=== PATIENT | male | born 1965 | race Caucasian/White ===

== ENCOUNTER → 2023-07-18 | Outpatient (CLI) | payer OTHER, SELFPAY ==
[2023-07-18 16:42] LABS: Absolute Lymphocyte Count 1.69 X10^3/uL (0.83-4.51); Absolute Neutrophil Count 3.9 X10^3/uL (2.0-7.7); Basophil# 0.06 X10^3/uL; Eosinophil# 0.11 X10^3/uL; Eosinophils% 1.8 % (0-5); Hematocrit 44.5 % (40-54); Hemoglobin 14.7 g/dL (13.0-16.5); Lymphocyte # 1.69 X10^3/ul (0.83-4.51); Lymphocyte % 26.9 % (19-41); Mean Corpuscular Hgb 28.3 pg (27.0-32.0); Mean Corpuscular Volume 85.6 fL (80-94); Monocyte# 0.46 X10^3/uL; Monocyte% 7.3 % (0-10); NRBC Flagged by Analyzer 0 % (0-5); Neutrophil # 3.93 X10^3/uL (2.7-7.7); Neutrophil % 62.5 % (47-70); Platelet Count 280 K/mm3 (150-450); RBC Distribution Width CV 11.9 % (11.6-14.6); RBC Distribution Width SD 37.2 fl (35.1-43.9); Reticulocyte Count 1.37 % (0.5-1.5); White Blood Count 6.3 K/mm3 (4.4-11.0)
[2023-07-18 16:59] LABS: Erythrocyte Sedimentation Rate 3 mm/hr (0-20)
[2023-07-18 17:10] LABS: Vitamin B12 543 pg/mL (211-911)
[2023-07-18 17:19] LABS: ALB/GLOB Ratio 1.2 RATIO (0.9-2.4); AST(SGOT) 24 U/L (15-37); Alanine Aminotransfer ALT/SGPT 28 U/L (16-61); Alkaline Phosphatase 70 U/L (45-117); Amylase 78 U/L (25-115); Anion Gap 5 (5-15); BUN 19 mg/dL (7-18); CRP < 2.90 mg/L (0.0-3.0); Calcium,Total 9.2 mg/dL (8.5-10.1); Chloride 104 mmol/L (98-107); EST Glomerular Filtration Rate 81 mL/min (>60); Est Glom Filt Rate - Afr Amer 98 mL/min (>60); Ferritin 391 ng/mL (26-388); Globulin 3.4 g/dL (2.2-4.2); Glucose 94 mg/dL (74-106); Iron 74 ug/dL (65-175); Iron Binding Capacity,Total 335 ug/dL (250-450); LDH 174 U/L (87-241); Lipase 24 U/L (13-75); Potassium 4.1 mmol/L (3.5-5.1); Protein, Total 7.4 g/dL (6.4-8.2); Sodium Level 138 mmol/L (136-145)
[2023-07-26 17:07] LABS: Albumin 3.9 g/dL (2.9-4.4); Alpha-1-Globulins 0.2 g/dL (0.0-0.4); Alpha-2-Globulins 0.8 g/dL (0.4-1.0); Copper, Serum or Plasma 95 ug/dL (69-132); Cytoplasmic Ab (C-ANCA) <1:20 titer (Neg:<1:20); Endomysial Antibody IgA Negative (Negative); Gamma Globulin 1.1 g/dL (0.4-1.8); Haptoglobin 57 mg/dL (29-370); Immunoglobulin A 118 mg/dL (90-386); Immunoglobulin E 14 IU/mL (6-495); Immunoglobulin G 1078 mg/dL (603-1613); Immunoglobulin M 103 mg/dL (20-172); Perinuclear Ab (P-ANCA) <1:20 titer (Neg:<1:20); t-Transglutaminase IgA <2 U/mL (0-3)
== END | disposition home or self-care (01) ==
LOC: LAB 15:23
PROVIDERS: PCP Family Medicine; Referring Provider Internal Medicine Gastroenterology; Visit Provider Internal Medicine Gastroenterology
DX: D50.9 Iron deficiency anemia, unspecified (principal)
CPT/HCPCS: 36415; 80053; 82150; 82525; 82607; 82728; 82784; 82785; 83010; 83516; 83540; 83550; 83615; 83690; 84165; 84443; 85025; 85045; 85652; 86140; 86255; 86256; 86334

== ENCOUNTER → 2023-07-28 | Outpatient (CLI) | payer OTHER, SELFPAY ==
[2023-08-02 20:08] LABS: Calprotectin, Stool 40 ug/g (0-120); Fats, Neutral Normal (.); Fats, Total Normal (.)
[2023-08-04 00:07] LABS: Pancreatic Elastase, Fecal 70 (>200)
== END | disposition home or self-care (01) ==
PROVIDERS: PCP Family Medicine; Visit Provider Internal Medicine Gastroenterology
DX: K58.9 Irritable bowel syndrome, unspecified (principal); D50.9 Iron deficiency anemia, unspecified
CPT/HCPCS: 82274; 82653; 82705; 83630; 83993; 87177; 87209; 87329; 87493; 87506

== ENCOUNTER 2023-11-15 12:21 | Day surgery (SDC) | payer OTHER, SELFPAY ==
--- NOTE | 2023-11-15 | IMM_PTH ---
PATHOLOGY RESULTS PATIENT: MICA TORRES LOC: EN U#:[id number] AGE/SX: 58/M ROOM: RE11/15/[address]: Dr. Yves Silva DO : 1965 BED: DIS: 11/15/2023 SPEC #: [id number] RECD: 11/18/23 12:33 STATUS: POLA RETon #: [id number] [place]: 11/15/23 00:[address]: Yves Silva DEPT: IMMUNOHISTOCHEMISTRY RECD BY: Cherise Robert ENTERED: 11/18/23 12:34 SP TYPE: IMMUNO OTHR DR: Dr. Neel Lara MD Tissues: Esophageal mucous membrane Procedures: P53 (initial) KI-67 (add) PHYSICIAN & INSTITUTION [place] [id number] SPECIMEN INFORMATION: Tissue Source: B - Distal esophagus Clinical Info: Iron deficiency anemia, diarrhea Specimen Number: [id number] CPT code: 56221, 69762 METHODOLOGY: Deparaffinized sections of prefer/formalin-fixed tissue or PAP/DQ stained slides are incubated with monoclonal/polyclonal antibodies/oligonucleotide probes. Localization is made via biotin free immunoperoxidase method. Appropriate controls are performed and reacted as expected. Results on target cell population are indicated in the following table: RESULTS: ANTIBODY / CLONE RESULT Block B P53 (DO-7) negative (null pattern) Ki-67 (30-9) positive, low These tests were developed and their performance characteristics determined by [facility]. They may not have been cleared or approved by the U.S. Food and Drug Administration. The FDA has determined that such clearance or approval is not necessary. The above immunohistochemical/dualISH markers are ordered and reviewed by the Pathologist. INTERPRETATION: B. Distal esophagus, biopsy: Negative for dysplasia. SARA:carleen 11/18/2023
[2023-11-15 12:48] VITALS: BP 123/75; PULSE 45; RESP 16; TEMP 36.3; O2SAT 99; BMI 28.3
[2023-11-15] MEDS: Lactated Ringers 1,000 ML 15 ML IV (12:51)
--- NOTE | 2023-11-15 12:52 | HP.PCM_ITS ---
History and Physical Date of Admission: 11/15/23 58 M who presents to the office today for initial consult. PCP OV noting history of low iron. Colonoscopy 2017 without finding; fecal occult x3 WNL. Maintained on iron supplement with orange juice. Iron level 63, hgb WNL?. Pt also reports long history of loose stools. Has urgent diarrhea after meals. Has not had this worked up. ROS Const Constitutional: Positive for fatigue ENT ENT: No difficulty swallowing Gastro GI: Positive for diarrhea; No abdominal pain, belching, bloating, change in bowel habits, change in stool character, coffee ground emesis, constipation, cramping, heartburn, difficulty swallowing, feeling full early, excessive flatus, incontinent of stools, Vomiting blood/hematemesis, Blood in stool, loose stools, Black,tarry stools, nausea/dyspepsia, pain with swallowing, vomiting or other Musc Musculoskeletal: No joint pain Skin Skin: No yellowing of the eye or itchy eyes Psych Psychiatric: No anxiety and No depression Endo Endocrine: Positive for fatigue Aller/Imm Allergy/Immunologic: No itchy eyes [place]/Lymp Hematologic/Lymphatic: No easy bleeding or easy bruising Exam Const General: cooperative and comfortable Nutritional Appearance: average body habitus and well nourished HENIL Head: normal to inspection Ears: hearing grossly normal bilaterally Nose: external nose normal Face and sinus: normal facial exam Mouth: oral mucosae normal Throat: posterior oropharynx normal Eyes General: appearance normal, both eyes and all related structures Neck Neck: normal visual inspection Chest Chest palpation & inspection: normal inspection of the chest and normal palpation of entire chest wall Resp Effort & Inspection: normal respiratory effort Auscultation: Bilateral: Clear to Auscultation Cardio Palpation: normal PMI Rate: regular rate Rhythm: regular rhythm GI Inspection: normal to inspection Auscultation: normal bowel sounds Percussion: normal to percussion Palpation: no hepatosplenomegaly Skin General: no rashes or lesions noted Neuro General: patient alert Extrem General: normal to inspection Psych Affect: normal affect Assessment and Plan Assessment and Plan (1) Iron deficiency anemia: Status: Acute Qualifiers: Iron deficiency anemia type: other iron deficiency Qualified Code(s): D50.8 - Other iron deficiency anemias Plan: The differential diagnosis for iron deficiency anemia does include gastric antral vascular ectasia, angiodysplasia, celiac disease, malabsorptive disorder such as pancreatic exocrine insufficiency in the setting of diarrhea. Also in the setting of diarrhea and if diagnosis does include ulcers of the small bowel secondary to inflammatory bowel disease or autoimmune associated vasculitis. He will undergo a capsule endoscopy because he had a normal colonoscopy. He will a lso undergo biochemical testing for celiac disease and other autoimmune disorders that may affect iron absorption. (2) Diarrhea: Status: Acute Qualifiers: Diarrhea type: functional diarrhea Qualified Code(s): K59.1 - Functional diarrhea Plan: The differential diagnosis for his diarrhea does include osmotic versus secretory diarrhea. It does seem if he has more of a osmotic diarrhea that we will going to the category of small bacterial overgrowth, exocrine pancreatic insufficiency, celiac disease and less likely inflammatory bowel disease. However we will check him for Crohn disease with IBD SGI from [facility]. Orders: Orders Ferritin Today D50.9 - Iron deficiency anemia, unspecified CBC W/Diff, Automated Today D50.9 - Iron deficiency anemia, unspecified Haptoglobin Today D50.9 - Iron deficiency anemia, unspecified LDH Today D50.9 - Iron deficiency anemia, unspecified Iron Binding Capacity,Total Today D50.9 - Iron deficiency anemia, unspecified TAMARA + Protein Elect, Serum Today D50.9 - Iron deficiency anemia, unspecified Retic Panel Count Today D50.9 - Iron deficiency anemia, unspecified Iron Today D50.9 - Iron deficiency anemia, unspecified ANCA Today D50.9 - Iron deficiency anemia, unspecified Celiac Disease Profile Today D50.9 - Iron deficiency anemia, unspecified CRP Today D50.9 - Iron deficiency anemia, unspecified Immunoglobulin A Today D50.9 - Iron deficiency anemia, unspecified Immunoglobulin E Today D50.9 - Iron deficiency anemia, unspecified Immunoglobulin G Today D50.9 - Iron deficiency anemia, unspecified Immunoglobulin M Today D50.9 - Iron deficiency anemia, unspecified Erythrocyte Sed Rate Today D50.9 - Iron deficiency anemia, unspecified Comprehensive Metabolic Profil Today D50.9 - Iron deficiency anemia, unspecified Copper, Serum or Plasma Today D50.9 - Iron deficiency anemia, unspecified Lipase Today D50.9 - Iron deficiency anemia, unspecified Amylase Today D50.9 - Iron deficiency anemia, unspecified Pancreatic Elastase, Fecal Today D50.9 - Iron deficiency anemia, unspecified Fecal Fat, Qualitative Today D50.9 - Iron deficiency anemia, unspecified Stool Occult Blood iFOB Today D50.9 - Iron deficiency anemia, unspecified Calprotectin, Stool Today D50.9 - Iron deficiency anemia, unspecified OVA+PARA w/Giardia EIA [id number] Today D50.9 - Iron deficiency anemia, unspecified ENTERIC PATHOGEN PANEL STOOL Today D50.9 - Iron deficiency anemia, unspecified, K58.9 - Irritable bowel syndrome without diarrhea Stool Lactoferrin/WBC Today D50.9 - Iron deficiency anemia, unspecified, K58.9 - Irritable bowel syndrome without diarrhea CDIFF (PCR) Today D50.9 - Iron deficiency anemia, unspecified Thyroid Stim Hormone (TSH) Today D50.9 - Iron deficiency anemia, unspecified Vitamin B12 Today D50.9 - Iron deficiency anemia, unspecified I have examined the patient and the H&P has been reviewed. There are no clinical changes since date of exam.
--- NOTE | 2023-11-15 13:15 | EGD_PTH ---
PATHOLOGY RESULTS PATIENT: MICA TORRES LOC: EN U#:[id number] AGE/SX: 58/M ROOM: RE11/15/[address]: Dr. Yves Silva DO : 1965 BED: DIS: 11/15/2023 SPEC #: [id number] RECD: 11/16/23 10:02 STATUS: POLA [place] #: [id number] [place]: 11/15/23 13:[address]: Yves Silva DEPT: SURGICAL PATHOLOGY RECD BY: Yu Fernandes ENTERED: 11/16/23 10:02 SP TYPE: EGD BIOPSY STEFAN DR: Dr. Neel Lara MD Tissues: Duodenum, NOS Esophagus, NOS Procedures: Special Stain Group II Surgery Specimen Level IV Alcian Blue/PAS (control) HEADER OPERATION: EGD, biopsy, electrohemostasis PRE-OP DIAGNOSIS: Iron deficiency anemia, diarrhea TISSUE SUBMITTED: A - Duodenum biopsy, B - Distal esophagus biopsy MICROSCOPIC DIAGNOSIS A. Duodenum, biopsy: Fragments of duodenal mucosa with mild congestion. B. Distal esophagus, biopsy: Fragments of gastroesophageal mucosa with a few cells with intestinal metaplasia (goblet cell metaplasia), consistent with Carroll's esophagus. Chronic inflammation and minimal acute inflammation Negative for dysplasia. See comment. SJ:rg 11/17/2023 COMMENT B. Alcian blue/PAS stain with matched control is used in the evaluation of the specimen. Immunohistochemistry ([id number]) for P53 and Ki-67 will be performed and results will be reported separately. Case has been reviewed in consultation with Dr. Goodman who concurs with the above diagnosis. IDC:AM MICROSCOPIC DESCRIPTION Slides are reviewed. GROSS DESCRIPTION A - Received in fixative is one container labeled with the patient's name and designated duodenum biopsy. The specimen consists of two irregular fragments of light cedeño soft tissue that in aggregate measure 0.6 x 0.3 x 0.1 cm. The specimen is totally submitted in one cassette. B - Received in fixative is one container labeled with the patient's name and designated distal esophagus biopsy. The specimen consists of multiple irregular fragments of light cedeño soft tissue that in aggregate measure 0.8 x 0.6 x 0.1 cm. The specimen is totally submitted in one cassette. / SARA:carleen 11/16/2023 TC:3 CPT: 09046 x2, 50743
[2023-11-15 13:50] VITALS: BP 102/74; BP 123/75; PULSE 61; RESP 16; TEMP 36.6; O2SAT 95
--- NOTE | 2023-11-15 13:53 | OP.EGD_ITS ---
Patient Name: Elijah Garcia Procedure Date: 11/15/2023 1:21 PM Date of : 1965 Age: 58 Procedure: Upper GI endoscopy Indications: Iron deficiency anemia Providers: Yves Silva DO Medicines: Monitored Anesthesia Care Patient Profile: This is a 58 year old male. Refer to note in patient chart for documentation of history and physical. Patient has symptoms of chronic dyspepsia and chronic heartburn. Complications: No immediate complications. Procedure: Pre-Anesthesia Assessment: - Prior to the procedure, a History and Physical was performed, and patient medications and allergies were reviewed. The patient is competent. The risks and benefits of the procedure and the sedation options and risks were discussed with the patient. All questions were answered and informed consent was obtained. Patient identification and proposed procedure were verified by the physician in the pre-procedure area. Mental Status Examination: alert and oriented. Airway Examination: normal oropharyngeal airway and neck mobility. Respiratory Examination: clear to auscultation. CV Examination: normal. Prophylactic Antibiotics: The patient does not require prophylactic antibiotics. Prior Anticoagulants: The patient has taken no anticoagulant or antiplatelet agents. ASA Grade Assessment: II - A patient with mild systemic disease. After reviewing the risks and benefits, the patient was deemed in satisfactory condition to undergo the procedure. The anesthesia plan was to use monitored anesthesia care (MAC). Immediately prior to administration of medications, the patient was re-assessed for adequacy to receive sedatives. The heart rate, respiratory rate, oxygen saturations, blood pressure, adequacy of pulmonary ventilation, and response to care were monitored throughout the procedure. The physical status of the patient was re-assessed after the procedure. After obtaining informed consent, the endoscope was passed under direct vision. Throughout the procedure, the patient's blood pressure, pulse, and oxygen saturations were monitored continuously. The Endoscope was introduced through the mouth, and advanced to the second part of duodenum. The upper GI endoscopy was accomplished without difficulty. The patient tolerated the procedure well. Scope In: 1:39:16 PM Scope Out: 1:45:09 PM Total Procedure Duration Time 0 hours 5 minutes 53 seconds Findings: There were esophageal mucosal changes suggestive of long-segment Carroll's esophagus present in the lower third of the esophagus. The maximum longitudinal extent of these mucosal changes was 4 cm in length. Mucosa was biopsied with a cold forceps for histology in a targeted manner at intervals of 1 cm in the lower third of the esophagus. One specimen bottle was sent to pathology. Verification of patient identification for the specimen was done. Estimated blood loss was minimal. A single 5 mm angiodysplastic lesion with bleeding was found on the greater curvature of the stomach. Coagulation for hemostasis using heater probe was successful. Estimated blood loss was minimal. Two 5 mm angiodysplastic lesions with bleeding were found in the duodenal bulb. Coagulation for hemostasis using heater probe was successful. Patchy mild inflammation characterized by erythema was found in the first portion of the duodenum. Biopsies were taken with a cold forceps for histology. Verification of patient identification for the specimen was done. Estimated blood loss was minimal. Impression: - Esophageal mucosal changes suggestive of long-segment Carroll's esophagus. Biopsied. - A single bleeding angiodysplastic lesion in the stomach. Treated with a heater probe. - Two bleeding angiodysplastic lesions in the duodenum. Treated with a heater probe. - Mucosal changes suspicious for duodenitis. Biopsied. Recommendation: - Discharge patient to home. - Resume previous diet. - Continue present medications. - Await pathology results. - Repeat upper endoscopy in 1 year for surveillance. Procedure Code(s): --- Professional --- 25840, 59, Esophagogastroduodenoscopy, flexible, transoral; with control of bleeding, any method 04286, 51, Esophagogastroduodenoscopy, flexible, transoral; with biopsy, single or multiple CPT copyright 2021 [employer]. All rights reserved. The codes documented in this report are preliminary and upon public opinion survey taker review may be revised to meet current compliance requirements. Yves Silva DO 11/15/2023 1:52:46 PM This report has been signed electronically. Number of Addenda: 0 Note Initiated On: 11/15/2023 1:21 PM
--- NOTE | 2023-11-15 13:53 | OP.CCLET_ITS ---
11/15/2023 Neel Lara Md Re : Upper GI endoscopy procedure for Elijah Garcia Donnell Lara This procedure was performed on Wednesday, November 15, 2023. My impressions and recommendations are as follows: Impressions : - Esophageal mucosal changes suggestive of long-segment Carroll's esophagus. Biopsied. - A single bleeding angiodysplastic lesion in the stomach. Treated with a heater probe. - Two bleeding angiodysplastic lesions in the duodenum. Treated with a heater probe. - Mucosal changes suspicious for duodenitis. Biopsied. Recommendations : - Discharge patient to home. - Resume previous diet. - Continue present medications. - Await pathology results. - Repeat upper endoscopy in 1 year for surveillance. My findings are described in the full procedure note, which is enclosed. If I can be of further assistance, please feel free to contact me at . Sincerely, Yves Silva, 11/15/2023 1:52:46 PM This report has been signed electronically.
[2023-11-15 13:55] VITALS: BP 104/70; BP 123/75; PULSE 52; RESP 16; O2SAT 96
[2023-11-15 14:00] VITALS: BP 113/73; BP 123/75; PULSE 50; RESP 16; O2SAT 96
[2023-11-15 14:05] VITALS: BP 106/68; BP 123/75; PULSE 51; RESP 16; TEMP 36.4; O2SAT 96
[2023-11-15 14:31] VITALS: BP 123/75
--- OUTSIDE RECORDS SUMMARY | 2023-11-15 16:45 | XMS RPT_ITS | CCD ---
Author Name Unknown Address [id number] [place] [address] Organization [facility] Care Team Providers Care Desk Editor Name Role Phone DEREK, MELO T Unavailable Unavailable DEREK, MELO T Unavailable Unavailable DEREK, MELO T Unavailable Unavailable DEREK, MELO T Unavailable Unavailable DEREK, MELO T Unavailable Unavailable DEREK, MELO T Unavailable Unavailable KRISTIN FAITH, DR HYDE Attending Unavailable KRISTIN FAITH, DR HYDE Attending Unavailable BECKY SPEARS CNP Primary Care Unavailable BECKY SPEARS CNP Attending Unavailable Samira FOSTER Consulting Unavailable BECKY SPEARS CNP Admitting Unavailable PROVIDER, UNKNOWN Consulting Unavailable PROVIDER, UNKNOWN Consulting Unavailable PROVIDER, UNKNOWN Consulting Unavailable BECKY SPEARS CNP Primary Care Unavailable BECKY SPEARS CNP Attending Unavailable Samira FOSTER Consulting Unavailable BECKY SPEARS CNP Admitting Unavailable PROVIDER, UNKNOWN Consulting Unavailable PROVIDER, UNKNOWN Consulting Unavailable PROVIDER, UNKNOWN Consulting Unavailable TERRANCE KNOWLES Admitting Unavailable Samira FOSTER Consulting Unavailable TERRANCE KNOWLES Primary Care Unavailable TERRANCE KNOWLES Attending Unavailable PROVIDER, UNKNOWN Consulting Unavailable PROVIDER, UNKNOWN Consulting Unavailable PROVIDER, UNKNOWN Consulting Unavailable Samira FOSTER MD Unavailable [phone] Friend, Yves Unavailable Unavailable BERLIN Unavailable Unavailable BARRETT MEDLEY MD Unavailable MELO REED Unavailable Mayra Coleman RN Unavailable Unavailable BRAD PULIDO RN Unavailable Unavailable PIERO ROJO Unavailable Unavailable Julia Ferro Unavailable Unavailable HEMA MCKINNON Unavailable Unavailable Donta MCKINNON MD Unavailable NEVAEH KELLY Unavailable Unavailable Aniyah Quiros Unavailable Unavailable Bren Guzmán Unavailable Unavailable ROSALIE GUZMÁN MD Unavailable Jakub LAMBERT, Keira Unavailable Unavaila LILI Rueda Unavailable Unavailable Lisa LAMBERT, Shirley Unavailable Unavailable Unavailable Unavailable Medications Current Medications Medication Drug Class(es) Dates Sig (Normalized) Sig (Original) Daily Multiple Vitamin (2 sources) ergocalciferol 1.25 mg oral capsule (2 sources) Provitamin D2 Compound ferrous sulfate 325 mg oral tablet (2 sources) Start: 06-01-2022 methIMAzole 5 mg oral tablet (4 sources) Thyroid Hormone Synthesis Inhibitor End: 12-27-2011 Completed/Discontinued Medications Medication Drug Class(es) Dates Sig (Normalized) Sig (Original) acetaminophen 300 mg / codeine phosphate 30 mg oral tablet (2 sources) Opioid Agonist Start: 09-10-2010 End: 03-12-2011 cephalexin 500 mg oral capsule (2 sources) Cephalosporin Antibacterial Start: 03-12-2011 End: 12-27-2011 dextromethorphan hydrobromide 2 mg/ml / guaiFENesin 20 mg/ml oral suspension (2 sources) Uncompetitive X-jlxsph-I-aspartat e Receptor Antagonist, Sigma-1 Agonist Start: 08-30-2016 End: 09-04-2016 ibuprofen 600 mg oral tablet (4 sources) Nonsteroidal Anti-inflammatory Drug Start: 10-25-2020 End: 11-24-2020 Problems Problem Classification Problem Date Documented Date Episodic/Chronic Administrative/social admission (2 sources) Finding related to ability to drive a car; Translations: [Encounter for examination for driving license] 10-14-2012 Episodic Allergic reactions (4 sources) Eczema; Translations: [Dermatitis, unspecified] 10-25-2020 Episodic Disorders of lipid metabolism (16 sources) Hyperlipidemia; Translations: [Hyperlipidemia, unspecified] 04-02-2017 Chronic Hyperplasia of prostate (2 sources) Hyperplasia of prostate, unspecified, without urinary obstruction and other lower urinary symptoms (LUTS) 10-14-2012 Chronic Immunizations and screening for infectious disease (12 sources) Needs influenza immunization; Translations: [Encounter for immunization] 08-12-2022 Episodic Influenza (2 sources) Influenza with other respiratory manifestations 10-20-2012 Episodic Joint disorders and dislocations; trauma-related (2 sources) 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 Malaise and fatigue (8 sources) Lack of energy; Translations: [Other fatigue] 12-21-2021 Episodic Nutritional deficiencies (20 sources) Vitamin D deficiency; Translations: [Vitamin D deficiency, unspecified] 12-21-2021 Chronic Nutritional deficiencies (20 sources) Iron deficiency; Translations: [Serum iron low] Onset: 11-02-2022 Episodic Open wounds of extremities (2 sources) Multiple and unspecified open wound of upper limb, without mention of complication 12-14-2010 Episodic Other aftercare (2 sources) Encounter for removal of sutures 12-21-2010 Episodic Other connective tissue disease (2 sources) Trochanteric bursitis; Translations: [Trochanteric bursitis, left hip] 09-22-2021 Episodic Other connective tissue disease (2 sources) Tendinitis of knee; Translations: [Other specified enthesopathies of unspecified lower limb, excluding foot] 12-27-2011 Episodic Other endocrine disorders (5 sources) Testicular hypofunction; Translations: [Testicular hypofunction] Onset: 06-14-2023 Chronic Other endocrine disorders (10 sources) Hypotestosteronism; Translations: [Endocrine disorder, unspecified] 02-11-2014 Episodic Other infections; including parasitic (4 sources) Personal history of other infectious and parasitic diseases Onset: 07-10-2020 06-01-2022 Episodic Other male genital disorders (6 sources) Disorder of prostate; Translations: [Disorder of prostate, unspecified] 12-15-2013 Episodic Other non-traumatic joint disorders (2 sources) Joint pain; Translations: [Pain in unspecified joint] 10-25-2020 Episodic Other non-traumatic joint disorders (6 sources) Hip pain; Translations: [Pain in left hip] 12-01-2018 Episodic Other non-traumatic joint disorders (4 sources) Pain in left knee; Translations: [Pain in joint, lower leg] 07-02-2014 Episodic Other nutritional; endocrine; and metabolic disorders (2 sources) Weight loss; Translations: [Abnormal weight loss] 05-30-2017 Episodic Other skin disorders (4 sources) Skin tag; Translations: [Other hypertrophic disorders of the skin] 10-25-2020 Episodic Other skin disorders (2 sources) Skin nodule; Translations: [Localized swelling, mass and lump, unspecified] 06-28-2016 Episodic Other skin disorders (4 sources) Abnormal granulation tissue; Translations: [Other hypertrophic disorders of the skin] 05-28-2015 Episodic Other upper respiratory infections (2 sources) Acute upper respiratory infection; Translations: [Acute upper respiratory infection, unspecified] 08-30-2016 Episodic Residual codes; unclassified (2 sources) Patient encounter status; Translations: [Encounter for prophylactic measures, unspecified] 10-25-2020 Episodic Residual codes; unclassified (2 sources) Decreased libido 07-28-2015 Episodic Skin and subcutaneous tissue infections (2 sources) Cellulitis and abscess of lower limb; Translations: [Cutaneous abscess of limb, unspecified] 03-12-2011 Episodic Superficial injury; contusion (14 sources) Contusion of hip; Translations: [Contusion of left hip, subsequent encounter] 01-10-2019 Episodic Syncope (6 sources) Near syncope; Translations: [Syncope and collapse] 11-22-2018 Episodic Thyroid disorders (20 sources) Thyrotoxicosis with toxic multinodular goiter without thyrotoxic crisis or storm; Translations: [Toxic multinodular goiter] Onset: 05-25-2022 Chronic Unclassified (11 sources) Encounter for screening for malignant neoplasm of colon; Translations: [Patient encounter status] Onset: 06-27-2017 06-01-2017 Episodic Results Test Name Value Interpretation Reference Range Facil ity Vital Signs Date Time Vital Sign Value Performing Clinician Gregg clifton 06-01-2022 15:34-0400 Body height 167.64 cm [facility]. 06-01-2022 15:34-0400 Body mass index (BMI) [Ratio] 26.79 kg/m2 Keira Call RN [facility] [employer] [facility].; [facility], [facility]. 06-01-2022 15:34-0400 Body surface area Derived from formula 1.85 m2 Keira Call RN [facility] [employer] [facility] [employer].; [facility], [facility]. 06-01-2022 15:34-0400 Body weight 75.3 kg Keira Call [facility].; [facility], [facility]. 06-01-2022 15:34-0400 Diastolic blood pressure 70 mm[Hg] Ke[facility].; [facility]. 06-01-2022 15:34-0400 Heart rate 68 /min Keira [facility].; [facility]. 06-01-2022 15:34-0400 Systolic blood pressure 128 mm[Hg] Keira Call RN [facility].; [facility], [facility]. 09-22-2021 13:54-0500 Body height 167.64 cm Samira FOSTER MD Work Phone: [facility].; [facility]. 09-22-2021 13:54-0500 Body mass index (BMI) [Ratio] 26.47 kg/m2 Samira FOSTER MD Work Phone: [facility].; [facility]. 09-22-2021 13:54-0500 Body surface area Derived from formula 1.84 m2 Samira FOSTER MD Work Phone: [facility].; [facility]. 09-22-2021 13:54-0500 Body weight 74.39 kg Samira FOSTER MD Work Phone: [facility].; [facility]. 09-22-2021 13:54-0500 Diastolic blood pressure 62 mm[Hg] Samira FOSTER MD Work Phone: [facility].; [facility]. 09-22-2021 13:54-0500 Heart rate 56 /min Samira FOSTER MD Work Phone: [facility].; [facility]. 09-22-2021 13:54-0500 Systolic blood pressure 101 mm[Hg] Samira FOSTER MD Work Phone: [facility]Ar[facility].; [facility] [employer] [facility]. 10-25-2020 09:14-0500 Body height 167.64 cm Samira FOSTER MD Work Phone: [facility] [employer] [facility] [employer].; [facility] [employer] [facility], [employer]. 10-25-2020 09:14-0500 Body mass index (BMI) [Ratio] 26.47 kg/m2 Samira FOSTER MD Work Phone: [facility] [employer] [facility].; [facility] [employer] [facility]. 10-25-2020 09:14-0500 Body surface area Derived from formula 1.84 m2 Samira FOSTER MD Work Phone: [facility] [employer] [facility] [employer].; [facility] [employer] [facility] Ill[facility]. 10-25-2020 09:14-0500 Body weight 74.39 kg Samira FOSTER MD Work Phone: [facility].; [facility] [employer] [facility] IlliKlax Media Inc. 10-25-2020 09:14-0500 Diastolic blood pressure 69 mm[Hg] Samira FOSTER MD Work Phone: [facility] IllAr[facility] [employer].; [facility] [employer] [facility], Inc. 10-25-2020 09:14-0500 Heart rate 51 /min Samira FOSTER MD Work Phone: [facility] IllAr[facility] [employer].; [facility] [employer] [facility] IlliKlax Media Inc. 10-25-2020 09:14-0500 Systolic blood pressure 115 mm[Hg] Samira FOSTER MD Work Phone: [facility].; [facility] [employer] [facility] IllAr[employer]. 01-10-2019 13:20-0400 Body height 167.64 cm PIERO ALIA [facility]Ar[facility].; [facility] [employer] [facility] IllAr[facility]. 01-10-2019 13:20-0400 Body mass index (BMI) [Ratio] 27.6 kg/m2 [facility] [employer] [facility], Inc.; [facility] [employer] [facility], Inc. 01-10-2019 13:20-0400 Body surface area Derived from formula 1.87 m2 [facility] [employer] [facility], Inc.; [facility] [employer] [facility], Inc. 01-10-2019 13:20-0400 Body weight 77.[address] [facility] [employer] [facility], Inc.; [facility] [employer] [facility], Inc. 01-10-2019 13:20-0400 Diastolic blood pressure 71 mm[Hg] [facility] [employer] [facility], Inc.; [facility] [employer] [facility], Inc. 01-10-2019 13:20-0400 Heart rate 71 /min [facility] [employer] [facility], Inc.; [facility]kaufDAUNC [facility] [employer]Ch[employer], Inc. 01-10-2019 13:20-0400 Systolic blood pressure 105 mm[Hg] [facility] [employer] [facility], Inc.; [facility] [employer]Ch[employer], Inc. 12-22-2018 12:58-0400 Body height 167.64 cm Keira Call RN [facility] [employer] [facility], Inc.; [facility] [employer] [facility], Inc. 12-22-2018 12:58-0400 Body mass index (BMI) [Ratio] 28.25 kg/m2 Keira Call RN [facility] [employer] [facility], Inc.; [facility] [employer] [facility], Inc. 12-22-2018 12:58-0400 Body surface area Derived from formula 1.89 m2 Keira Call RN [facility] [employer] [facility], Inc.; [employer] [facility] [employer]Ch[employer], Inc. 12-22-2018 12:58-0400 Body weight 79.38 kg Keira Call RN [facility] [employer] [facility], Inc.; [facility] [employer], Inc. 12-22-2018 12:58-0400 Diastolic blood pressure 82 mm[Hg] Keira Call RN [facility] [employer] [facility], Inc.; [facility] [employer], Inc. 12-22-2018 12:58-0400 Heart rate 65 /min Keira Call RN [facility] [employer] [facility], Inc.; [facility] [employer] [facility], Inc. 12-22-2018 12:58-0400 Systolic blood pressure 126 mm[Hg] Keira Call RN [facility] [employer] [facility], Inc.; [facility] [employer] [facility], Inc. 12-08-2018 13:49-0500 Body height 167.64 cm Keira Call RN [facility] [employer] [facility], Inc.; [facility] [employer] [facility], Inc. 12-08-2018 13:49-0500 Body mass index (BMI) [Ratio] 28.89 kg/m2 Keira Call RN [facility], Inc.; [facility] [employer] [facility], Inc. 12-08-2018 13:49-0500 Body surface area Derived from formula 1.91 m2 Keira Call RN [facility], Inc.; [facility] [employer] [facility], Inc. 12-08-2018 13:49-0500 Body weight 81.19 kg Keira Call RN [facility] [employer] [facility], Inc.; [facility] [employer] [facility], Inc. 12-08-2018 13:49-0500 Diastolic blood pressure 72 mm[Hg] Keira Call RN [facility], Inc.; [facility] [employer] [facility], Inc. 12-08-2018 13:49-0500 Heart rate 56 /min Keira Call RN [facility] [employer] [facility], Inc.; [facility] [employer] [facility], Inc. 12-08-2018 13:49-0500 Systolic blood pressure 145 mm[Hg] Keira Call RN [facility] [employer] [facility], Inc.; [facility] [employer] [facility], Inc. 12-01-2018 10:30-0500 Body height 167.64 cm Mayra Coleman RN [facility] [employer] [facility], Inc.; [facility] [employer] [facility], Inc. 12-01-2018 10:30-0500 Body mass index (BMI) [Ratio] 28.31 kg/m2 Mayra Coleman RN [facility] [employer] [facility], Inc.; [facility] [employer] [facility], Inc. 12-01-2018 10:30-0500 Body surface area Derived from formula 1.89 m2 Mayra Coleman RN [facility], Inc.; [facility] [employer] [facility], Inc. 12-01-2018 10:30-0500 Body temperature 97.7 [degF] Mayra Coleman RN [facility], Inc.; [facility] [employer] [facility], Inc. 12-01-2018 10:30-0500 Body weight 79.56 kg Mayra Coleman RN [facility], Inc.; [facility] [employer] [facility], Inc. 12-01-2018 10:30-0500 Diastolic blood pressure 74 mm[Hg] Mayra Coleman RN [facility] [employer] [facility], Inc.; [facility] [employer] [facility], Inc. 12-01-2018 10:30-0500 Heart rate 55 /min Mayra Coleman RN [facility], Inc.; [facility] [employer] [facility], Inc. 12-01-2018 10:30-0500 Systolic blood pressure 128 mm[Hg] Mayra Colmean RN [facility] [employer] [facility], Inc.; [facility] [employer] [facility], Inc. 11-22-2018 13:08-0500 Diastolic blood pressure 64 mm[Hg] [facility] [employer] [facility], Inc.; [facility] [employer] [facility], Inc. 11-22-2018 13:08-0500 Heart rate 64 /min [facility] [employer] [facility], Inc.; [facility] [employer] [facility], Inc. 11-22-2018 13:08-0500 Systolic blood pressure 96 mm[Hg] [facility] [employer] [facility], Inc.; [facility] [employer], Inc. 05-28-2017 14:18-0400 Body weight 73.3 kg Samira FOSTER MD Work Phone: [facility] [employer] [facility] IllAr[employer]Mind [employer].; [employer] [facility] [employer], Inc. 05-02-2017 16:08-0400 Body height 165.1 cm LILI MEDINA [facility] [employer] [facility], Inc.; [facility] [employer] [facility], Inc. 05-02-2017 16:08-0400 Body mass index (BMI) [Ratio] 27.92 kg/m2 [facility], Inc.; [facility], Inc. 05-02-2017 [id number] Body surface area Derived from formula 1.84 m2 [facility], Inc.; [facility], Inc. 05-02-2017 [id number] Body weight 76.11 kg [facility], Inc.; [facility], Inc. 05-02-2017 16:08-0400 Diastolic blood pressure 72 mm[Hg] [facility], Inc.; [facility], Inc. 05-02-2017 [id number] Heart rate 56 /min [facility], Inc.; [facility] [employer] [facility], Inc. 05-02-2017 16:08-0400 Systolic blood pressure 108 mm[Hg] [facility], Inc.; [facility] [employer] [facility], Inc. 04-16-2017 10:05-0400 Body height 165.1 cm [facility], Inc.; [facility], Inc. 04-16-2017 10:05-0400 Body mass index (BMI) [Ratio] 28.12 kg/m2 [facility], Inc.; [facility], Inc. 04-16-2017 10:05-0400 Body surface area Derived from formula 1.84 m2 [facility], Inc.; [facility] [employer] [facility], Inc. 04-16-2017 10:05-0400 Body weight 76.66 kg [facility], Inc.; [facility] [employer] [facility], Inc. 04-16-2017 10:05-0400 Diastolic blood pressure 68 mm[Hg] [facility] [employer] [facility], Inc.; [facility] [employer] [facility], Inc. 04-16-2017 10:05-0400 Heart rate 65 /min [facility], Inc.; [facility], Inc. 04-16-2017 10:05-0400 Systolic blood pressure 105 mm[Hg] [facility], Inc.; [facility] [employer] [facility], Inc. 04-02-2017 10:35-0400 Body height 165.1 cm [facility], Inc.; [facility], Inc. 04-02-2017 10:35-0400 Body mass index (BMI) [Ratio] 28.46 kg/m2 [facility], Inc.; [facility], Inc. 04-02-2017 10:35-0400 Body surface area Derived from formula 1.85 m2 [facility], Inc.; [facility], Inc. 04-02-2017 10:35-0400 Body weight 77.57 kg [facility], Inc.; [facility] [employer] [facility], Inc. 04-02-2017 10:35-0400 Diastolic blood pressure 79 mm[Hg] [facility], Inc.; [facility] [employer] [facility], Inc. 04-02-2017 10:35-0400 Heart rate 73 /min [facility], Inc.; [facility], Inc. 04-02-2017 10:35-0400 Systolic blood pressure 123 mm[Hg] [facility] [employer] [facility], Inc.; [facility] [employer] [facility], Inc. 08-30-2016 14:38-0500 Body height 165.1 cm Samira FOSTER MD Work Phone: [facility] [employer] [facility], Inc.; [facility] [employer] [facility], Inc. 08-30-2016 14:38-0500 Body mass index (BMI) [Ratio] 29.29 kg/m2 Samira FOSTER MD Work Phone: [employer] [facility] [employer] [facility] [employer]. 08-30-2016 14:38-0500 Body surface area Derived from formula 1.87 m2 Samira FOSTER MD Work Phone: [employer] [facility] [employer] IllAr[employer] [employer].; [employer] [facility] [employer] [facility] [employer]. 08-30-2016 14:38-0500 Body temperature 98 [degF] Samira FOSTER MD Work Phone: [employer] [facility] IllAr[facility] [employer].; [employer] [facility] [employer] [facility] [employer]. 08-30-2016 14:38-0500 Body weight 79.83 kg Samira FOSTER MD Work Phone: [employer] [facility] [employer] [facility] [employer]. 08-30-2016 14:38-0500 Diastolic blood pressure 72 mm[Hg] Samira FOSTER MD Work Phone: [employer]; Autonomic NetworksGRAND [facility]IEW HEALTH [employer] [facility] [employer]. 08-30-2016 14:38-0500 Heart rate 65 /min Samira FOSTER MD Work Phone: [employer]; Autonomic NetworksGR[facility] HEALTH [employer] [facility] [employer]. 08-30-2016 14:38-0500 Inhaled oxygen concentration 21 % Samira FOSTER MD Work Phone: [employer].; Autonomic NetworksGR[facility] HEALTH [employer] [facility] [employer]. 08-30-2016 14:38-0500 SaO2% (BldA) [Mass fraction] 95 % Samira FOSTER MD Work Phone: [employer]; Aut[employer] NetworksGR[facility] HEALTH [employer] [facility] [employer]. 08-30-2016 14:38-0500 Systolic blood pressure 119 mm[Hg] Samira FOSTER MD Work Phone: [employer].; Autonomic NetworksGR[facility] HEALTH [employer] [facility] [employer]. 06-28-2016 15:33-0400 Body height 165.1 cm Samira FOSTER MD Work Phone: [facility] [employer] [facility]ArcherMind Technology.; [facility] [employer] [facility] IllArcherMind Technology. 06-28-2016 15:33-0400 Body mass index (BMI) [Ratio] 28.29 kg/m2 Samira FOSTER MD Work Phone: [facility] [employer] [facility] IllArcherMind Technology.; [facility] [employer] [facility] IllArcherMind Technology. 06-28-2016 15:33-0400 Body surface area Derived from formula 1.85 m2 Samira FOSTER MD Work Phone: [facility] [employer] [facility] IllArcherMind Technology.; [facility] [employer] [facility] IllArcherMind Technology. 06-28-2016 15:33-0400 Body weight 77.11 kg Samira FOSTER MD Work Phone: [facility] [employer] [facility] IllArcherMind Technology.; [facility] [employer] [facility] IllArcherMind Technology. 05-28-2015 15:34-0400 Body height 167.64 cm [facility] [employer] [facility] IllArcherMind Technology.; [facility] [employer] [facility] IllArcherMind Technology. 05-28-2015 15:34-0400 Body mass index (BMI) [Ratio] 27.6 kg/m2 [facility] [employer] [facility] IllArcherMind Technology.; [facility] [employer] [facility] IllArcherMind Technology. 05-28-2015 15:34-0400 Body surface area Derived from formula 1.87 m2 [facility] [employer] [facility] IllArcherMind Technology.; [facility] [employer] [facility] IlliKlax Media [facility]. 05-28-2015 15:34-0400 Body weight 77.57 kg LILI [facility] [employer] [facility] IllArcherMind Technology.; [facility] [employer] [facility] IllArcherMind Technology. 05-28-2015 15:34-0400 Diastolic blood pressure 69 mm[Hg] LILI [facility] IllArcherMind Technology.; [facility] [employer] [facility] IllArcherMind Technology. 05-28-2015 15:34-0400 Heart rate 68 /min LILI [facility]ale[facility] Bro[facility] IllArcherMind Technology.; [facility] [employer] [facility] IllArcherMind Technology. 05-28-2015 15:34-0400 Systolic blood pressure 112 mm[Hg] LILI MEDINA [facility], Inc.; [facility], [facility]. 06-03-2014 15:47-0400 Body height 163.83 cm Keira Call RN [facility], [employer].; [facility], Inc[facility] 06-03-2014 15:47-0400 Body mass index (BMI) [Ratio] 28.56 kg/m2 Keira Call RN [facility], [facility].; [facility], Inc[facility] 06-03-2014 15:47-0400 Body surface area Derived from formula 1.83 m2 Keira Call RN [facility], [facility].; [facility], [facility]. 06-03-2014 15:47-0400 Body weight 76.66 kg Keira Call RN [facility], [employer].; [facility], [facility]. 06-03-2014 15:47-0400 Diastolic blood pressure 74 mm[Hg] Keira Call RN [facility] CenteriKlax Media Inc.; [facility], [facility]. 06-03-2014 15:47-0400 Heart rate 69 /min Keira Call RN [facility], [employer].; [facility], [facility]. 06-03-2014 15:47-0400 Systolic blood pressure 120 mm[Hg] Keira Call RN [facility] [employer] [facility], Inc.; [facility], [facility]. 10-20-2012 15:56-0500 Body height 163.83 cm [facility], [facility].; [facility], Inc[facility] 10-20-2012 15:56-0500 Body mass index (BMI) [Ratio] 28.22 kg/m2 [facility].; [facility], [facility]. 10-20-2012 15:56-0500 Body surface area Derived from formula 1.82 m2 [facility], [employer].; [facility] [employer] [facility], Inc. 10-20-2012 15:56-0500 Body temperature 98.6 [degF] [facility] [employer] [facility], Inc.; [facility], Inc[facility] 10-20-2012 15:56-0500 Body weight 75.75 kg Julia [facility], Inc.; [facility], Inc[facility] 10-20-2012 15:56-0500 Diastolic blood pressure 60 mm[Hg] Julia [facility], Inc.; [facility], Inc[facility] 10-20-2012 15:56-0500 Heart rate 90 /min Julia [facility], Inc.; [facility], Inc[facility] 10-20-2012 15:56-0500 Systolic blood pressure 96 mm[Hg] Julia [facility], Inc.; [facility], Inc[facility] 10-14-2012 09:10-0500 Body height 163.83 cm Mayra Coleman RN [facility] [employer] [facility], Inc.; [facility] [employer] [facility], Inc. 10-14-2012 09:10-0500 Body mass index (BMI) [Ratio] 28.73 kg/m2 Mayra Coleman RN [facility], Inc.; [facility] [employer] [facility], Inc. 10-14-2012 09:10-0500 Body surface area Derived from formula 1.84 m2 Mayra Coleman RN [facility], Inc.; [facility], Inc[facility] 10-14-2012 09:10-0500 Body temperature 97.9 [degF] Mayra Coleman RN [facility], Inc.; [facility] [employer] [facility], Inc. 10-14-2012 09:10-0500 Body weight 77.11 kg Mayra Coleman RN [facility] [employer] [facility], Inc.; [facility] [employer] [facility], Inc. 10-14-2012 09:10-0500 Diastolic blood pressure 60 mm[Hg] Mayra Coleman RN [facility] [employer] [facility], Inc.; [facility] [employer] [facility], Inc. 10-14-2012 09:10-0500 Heart rate 52 /min Mayra Coleman RN [facility] [employer] [facility], Inc.; [facility] [employer] [facility], Inc. 10-14-2012 09:10-0500 Systolic blood pressure 99 mm[Hg] Mayra Coleman RN [facility], Inc.; [facility] [employer] [facility], [facility]. 12-27-2011 16:36-0400 Diastolic blood pressure 73 mm[Hg] Keira Call RN [facility] [employer] [facility], Inc.; [facility] [employer] [facility], Inc. 12-27-2011 16:36-0400 Heart rate 64 /min Keira Call RN [facility] [employer] [facility], Inc.; [facility] [employer] [facility], Inc. 12-27-2011 16:36-0400 Systolic blood pressure 113 mm[Hg] Keira Call RN [facility] [employer] [facility], Inc.; [facility] [employer] [facility], Inc. 03-12-2011 16:43-0400 Body height 163.83 cm Mayra Coleman RN [facility] [employer] [facility], [facility].; [facility] [employer] [facility], Inc. 03-12-2011 16:43-0400 Body mass index (BMI) [Ratio] 27.21 kg/m2 Mayra Coleman RN [facility] [employer] [facility], Inc.; [facility] [employer] [facility], [facility]. 03-12-2011 16:43-0400 Body surface area Derived from formula 1.79 m2 Mayra Coleman RN [facility] [employer] [facility], [facility].; [facility] [employer] [facility], [facility]. 03-12-2011 16:43-0400 Body temperature 97.9 [degF] Mayra Coleman RN [facility] [employer] [facility], [facility].; [facility] [employer] [facility], Inc. 03-12-2011 16:43-0400 Body weight 73.03 kg Mayra Coleman RN [facility] [employer] [facility], [facility].; [facility] [employer] [facility], Inc. 03-12-2011 16:43-0400 Diastolic blood pressure 58 mm[Hg] Mayra Coleman RN [facility] [employer] [facility], Inc.; [facility] [employer] [facility], Inc. 03-12-2011 16:43-0400 Heart rate 60 /min Mayra Coleman RN [facility] [employer] [facility], [facility].; [facility] [employer] [facility], Inc. 03-12-2011 16:43-0400 Systolic blood pressure 95 mm[Hg] Mayra Coleman RN [facility] [employer] [facility], Inc.; [facility] [employer] [facility], Inc. 11-28-2010 10:02-0500 Body height 167.64 cm Julia [facility] [employer] [facility], [facility].; [facility] [employer] [facility], Inc. 11-28-2010 10:02-0500 Body mass index (BMI) [Ratio] 26.31 kg/m2 Julia [facility], [facility].; [facility] [employer] [facility], Inc. 11-28-2010 10:02-0500 Body surface area Derived from formula 1.83 m2 [facility], [facility].; [facility] [employer] [facility], Inc. 11-28-2010 10:02-0500 Body weight 73.94 kg Julia [facility] [employer] [facility], [facility].; [facility] [employer] [facility], [facility]. 11-28-2010 10:02-0500 Diastolic blood pressure 65 mm[Hg] Julia [facility] [employer] [facility], [facility].; [facility] [employer] [facility], Inc. 11-28-2010 10:02-0500 Heart rate 67 /min Julia [facility] [employer] [facility], [facility].; [facility] [employer] [facility], Inc. 11-28-2010 10:02-0500 Systolic blood pressure 113 mm[Hg] Julia [facility] [employer] [facility], Inc.; [facility] [employer] [facility], Inc. 09-10-2010 16:05-0500 Body temperature 98.3 [degF] LILI [facility] [employer] [facility], Inc.; [facility] [employer] [facility], Inc. 09-10-2010 16:05-0500 Body weight 75.3 kg LILI [facility] [employer] [facility], [employer].; [facility] [employer] [facility], Inc. 09-10-2010 16:05-0500 Diastolic blood pressure 71 mm[Hg] LILI [facility] [employer] [facility], Inc.; [facility] [employer] [facility], Inc. 09-10-2010 16:05-0500 Heart rate 59 /min [facility] [employer] [facility], Inc.; [facility] Patel [employer] [facility], Inc. 09-10-2010 16:05-0500 Systolic blood pressure 109 mm[Hg] LILI [facility] [employer] [facility], Inc.; [facility] [employer] [facility], Inc. Encounters Encounter Date Encounter Type Care Provider Facility Start: 11-15-2023 End: 11-15-2023 Samira FOSTER MD Work Phone: [facility] [employer]. Start: 09-30-2023 End: 09-30-2023 ambulatory TERRANCE KNOWLES [facility] Start: 06-30-2023 End: 06-30-2023 Samira FOSTER MD Work Phone: [facility] [employer] [facility] IllArcherMind Technology. Start: 06-14-2023 End: 06-14-2023 ambulatory BECKY GABRIEL [facility] Start: 06-10-2023 End: 06-10-2023 ambulatory BECKY GABRIEL [facility] Start: 02-16-2023 End: 02-16-2023 Samira FOSTER MD Work Phone: [facility] [employer] [facility] IllArcherMind Technology. Start: 02-15-2023 End: 02-15-2023 Samira FOSTER MD Work Phone: [facility] [employer] [facility] IllArcherMind Technology. Start: 12-21-2022 End: 12-21-2022 Samira FOSTER MD Work Phone: [facility] [employer]. Start: 12-20-2022 End: 12-20-2022 Samira FOSTER MD Work Phone: [facility] [employer]. Start: 11-02-2022 End: 11-07-[address] BARRETT FOSTER MD Facility:A Start: 11-02-2022 End: 11-02-2022 Samira FOSTER MD Work Phone: [facility] Center[facility]ink[facility]. Start: 10-29-2022 End: 10-29-2022 Samira FOSTER MD Work Phone: [facility]aufDA[facility] [place] [employer] [facility] IllArcherMind Technology. Start: 10-27-2022 End: 10-27-2022 Samira [facility]OSTER MD Work [facility] Start: 10-15-2022 End: 10-15-2022 Sam[facility]OSTER MD [facility] Start: 09-27-2022 End: 09-27-2022 Samira FOSTER MD Work Phone: [facility], [employer] Start: 08-12-2022 End: 08-12-2022 Samira FOSTER MD Work Phone: [facility] Start: 06-15-2022 End: 06-15-2022 Samira FOSTER MD Work Phone: [facility] Start: 06-01-2022 End: 06-01-2022 Samira FOSTER MD Work Phone: [facility] Start: 05-25-2022 End: 05-30-2022 [facility] DR BARRETT FOSTER MD Facility:A Start: 05-25-2022 End: 05-25-2022 Samira FOSTER MD Work Phone: [facility] Start: 05-18-2022 End: 05-18-2022 Samira FOSTER MD Work Phone: [facility] Start: 12-21-2021 End: 12-21-2021 Samira FOSTER MD Work Phone: [facility] Start: 12-09-2021 End: 12-09-2021 Samira FOSTER MD Work Phone: [facility] Start: 12-08-2021 End: 12-08-2021 Samira FOSTER MD Work Phone: [facility]. Start: 09-22-2021 End: 09-22-2021 Office outpatient visit 15 minutes Samira FOSTER MD Work Phone: [facility], [employer] Start: 08-13-2021 End: 08-13-2021 Samira FOSTER MD Work Phone: [facility]. Start: 08-11-2021 End: 08-11-2021 Samira FOSTER MD Work Phone: [facility]. Start: 08-05-2021 End: 08-05-2021 Samira FOSTER MD Work Phone: [facility], [employer]. Start: 04-09-2021 End: 04-09-2021 Samira FOSTER MD Work Phone: [facility]. Start: 12-16-2020 End: 12-16-2020 Samira FOSTER MD Work Phone: [facility]. Start: 10-25-2020 End: 10-25-2020 Samira FOSTER MD Work Phone: [facility]. Start: 10-25-2020 End: 10-25-2020 Samira FOSTER MD Work Phone: [facility]. Start: 10-25-2020 End: 10-25-2020 Office outpatient visit 15 minutes Samira FOSTER MD Work Phone: [facility]. Start: 10-14-2020 End: 10-14-2020 Samira FOSTER MD Work Phone: [facility]. Start: 09-05-2020 End: 09-05-2020 Samira FOSTER MD Work Phone: [employer]. Start: 08-01-2020 End: 08-01-2020 Samira FOSTER MD Work Phone: [employer]in [facility] SmartPill. Start: 07-28-2020 End: 07-28-2020 Samira FOSTER MD Work Phone: [facility] vidCoin [facility] SmartPill. Start: 05-23-2020 End: 05-23-2020 Samira FOSTER MD Work Phone: SCRM [facility] SmartPill. Start: 03-14-2020 End: 03-14-2020 Samira FOSTER MD Work Phone: [employer] [facility] Smart[employer]ill. Start: 02-22-2020 End: 02-22-2020 Samira FOSTER MD Work Phone: [employer]. Start: 01-14-2020 End: 01-14-2020 Samira FOSTER MD Work Phone: [employer]. Start: 01-10-2019 End: 01-10-2019 Office outpatient visit 15 minutes Samira FOSTER MD Work Phone: [employer]. Start: 12-22-2018 End: 12-22-2018 Office outpatient visit 15 minutes Samira FOSTER MD Work Phone: S[employer] [facility] SmartPill. Start: 12-08-2018 End: 12-08-2018 Office outpatient visit 15 minutes Samira FOSTER MD Work Phone: [employer] [facility] Smart[employer]ill. Start: 12-01-2018 End: 12-01-2018 Office outpatient visit 15 minutes Samira FOSTER MD Work Phone: [employer]. Start: 12-01-2018 End: 12-01-2018 Samira FOSTER MD Work Phone: [employer] Start: 11-22-2018 End: 11-22-2018 Samira FOSTER MD Work Phone: [facility] [employer]. Start: 11-22-2018 End: 11-22-2018 Samira FOSTER MD Work Phone: [facility] [employer]oc[employer] [facility] IlliKlax Media Inc. Start: 11-22-2018 End: 11-22-2018 Office outpatient visit 15 minutes Samira FOSTER MD Work Phone: [facility] [employer] [facility] IlliKlax Media Inc. Start: 02-16-2018 End: 02-16-2018 Samira FOSTER MD Work Phone: [facility] [employer] [facility] IllArcherMind Technology. Start: 07-22-2017 End: 07-22-2017 [facility] Start: 06-27-2017 End: 06-27-2017 [facility] Start: 06-01-2017 End: 06-01-2017 Samira FOSTER MD Work Phone: [facility] [employer] [facility] IlliKlax Media Inc. Start: 05-30-2017 End: 05-30-2017 Samira FOSTER MD Work Phone: [facility] [employer] [facility] IlliKlax Media Inc. Start: 05-05-2017 End: 05-05-2017 Samira FOSTER MD Work Phone: [facility] [employer]. Start: 05-04-2017 End: 05-04-2017 Samira FOSTER MD Work Phone: [facility] Patel [employer]. Start: 05-02-2017 End: 05-02-2017 Office outpatient visit 15 minutes Samira FOSTER MD Work Phone: [facility] [employer]. Start: 04-16-2017 End: 04-16-2017 Office outpatient visit 15 minutes Samira FOSTER MD Work Phone: [facility]ST[facility] [employer]. Start: 04-02-2017 End: 04-02-2017 Office outpatient visit 15 minutes Samira FOSTER MD Work Phone: [employer]. Start: 02-24-2017 End: 02-24-2017 Samira FOSTER MD Work Phone: [employer] [facility] SmartPill. Start: 08-30-2016 End: 08-30-2016 Office outpatient visit 15 minutes Samira FOSTER MD Work Phone: [facility] SmartPill. Start: 08-18-2016 End: 08-18-2016 Samira FOSTER MD Work Phone: [employer] [facility] SmartPill. Start: 08-16-2016 End: 08-16-2016 Samira FOSTER MD Work Phone: SCR[employer] [facility] SmartPill. Start: 06-28-2016 End: 06-28-2016 Office outpatient visit 15 minutes Samira FOSTER MD Work Phone: [facility]GR[facility] [employer]. Start: 01-05-2016 End: 01-05-2016 Samira FOSTER MD Work Phone: [employer]. Start: 11-28-2015 End: 11-28-2015 Samira FOSTER MD Work Phone: [employer]. Start: 09-30-2015 End: 09-30-2015 Samira FOSTER MD Work Phone: [employer]. Start: 07-28-2015 End: 07-28-2015 Samira FOSTER MD Work Phone: [employer]. Start: 07-21-2015 End: 07-21-2015 Samira FOSTER MD Work Phone: [facility] SmartPill. Start: 07-09-2015 End: 07-09-2015 Samira FOSTER MD Work Phone: [facility] Smart[employer]ill. Start: 05-28-2015 End: 05-28-2015 Office outpatient visit 25 minutes Samira FOSTER MD Work Phone: [facility] [employer]. Start: 12-04-2014 End: 12-04-2014 Samira FOSTER MD Work Phone: [facility]. Start: 09-28-2014 End: 09-28-2014 Samira FOSTER MD Work Phone: [facility] [employer]. Start: 09-17-2014 End: 09-17-2014 Samira FOSTER MD Work Phone: [facility] [employer]. Start: 07-03-2014 End: 07-03-2014 Samira FOSTER MD Work Phone: [facility] SmartPill. Start: 07-02-2014 End: 07-02-2014 Samira FOSTER MD Work Phone: [facility]. Start: 06-03-2014 End: 06-03-2014 Samira FOSTER MD Work Phone: [facility] SmartPill. Start: 04-13-2014 End: 04-13-2014 Samira FOSTER MD Work Phone: [facility] [employer]ill. Start: 04-11-2014 End: 04-11-2014 Samira FOSTER MD Work Phone: [facility] SmartPill. Start: 02-16-2014 End: 02-19-2014 Samira FOSTER MD Work Phone: [facility] SmartPill. Start: 02-13-2014 End: 02-13-2014 Patient encounter status Samira FOSTER MD Work Phone: [facility] [employer].; [place] [employer] [facility] [employer] [facility] IllArcherMind Technology. Start: 02-13-2014 End: 02-13-2014 Samira FOSTER MD Work Phone: [facility]. Start: 02-11-2014 End: 02-11-2014 Samira FOSTER MD Work Phone: [facility]. Start: 02-08-2014 End: 02-08-2014 Samira FOSTER MD Work Phone: [facility] [employer] [facility] IllArcherMind Technology. Start: 12-15-2013 End: 12-15-2013 Samira FOSTER MD Work Phone: [facility] [employer] [facility] IllArcherMind Technology. Start: 12-03-2013 End: 12-03-2013 Samira FOSTER MD Work Phone: [facility] [employer] [facility] IllArcherMind Technology. Start: 11-16-2013 End: 11-16-2013 Samira FOSTER MD Work Phone: [facility] [employer] [facility] IllArcherMind Technology. Start: 11-15-2013 End: 11-15-2013 Samira FOSTER MD Work Phone: [facility] [employer]. Start: 09-29-2013 End: 09-29-2013 Samira FOSTER MD Work Phone: [facility] [employer] [facility] IllArcherMind Technology. Start: 08-15-2013 End: 08-15-2013 Samira FOSTER MD Work Phone: [facility] [employer] [facility] IllArcherMind Technology. Start: 08-11-2013 End: 08-11-2013 Samira FOSTER MD Work Phone: [facility] [employer] [facility] IllArcherMind Technology. Start: 07-26-2013 End: 07-26-2013 Samira FOSTER MD Work Phone: [facility] [employer] [facility] IllArcherMind Technology. Start: 07-21-2013 End: 07-21-2013 Samira FOSTER MD Work Phone: [facility] [employer]. Start: 07-20-2013 End: 07-20-2013 Samira FOSTER MD Work Phone: [facility] [employer]. Start: 10-20-2012 End: 10-20-2012 Samira FOSTER MD Work Phone: [facility] [employer]. Start: 10-14-2012 End: 10-14-2012 Routine general medical examination at a health care facility Samira FOSTER MD Work Phone: [facility] [employer]. Start: 10-14-2012 End: 10-14-2012 Samira FOSTER MD Work Phone: [facility] [employer]. Start: 08-19-2012 End: 08-19-2012 Samira FOSTER MD Work Phone: [facility] [employer]. Start: 08-03-2012 End: 08-03-2012 Samira FOSTER MD Work Phone: [facility] [employer]. Start: 06-03-2012 End: 06-03-2012 Samira FOSTER MD Work Phone: [facility] [employer]. Start: 06-02-2012 End: 06-02-2012 Samira FOSTER MD Work Phone: [facility] [employer]. Start: 04-29-2012 End: 04-29-2012 Samira FOSTER MD Work Phone: [facility] [employer]. Start: 04-21-2012 End: 04-21-2012 Samira FOSTER MD Work Phone: [facility] [employer]. Start: 03-25-2012 End: 03-25-2012 Samira FOSTER MD Work Phone: [facility] [employer]. Start: 03-23-2012 End: 03-23-2012 Samira FOSTER MD Work Phone: [place] [employer] [facility] [employer]. Start: 02-26-2012 End: 02-26-2012 Samira FOSTER MD Work Phone: [place] [employer] [facility] [employer]. Start: 02-24-2012 End: 02-24-2012 Samira FOSTER MD Work Phone: [place] [employer] [facility] [employer]. Start: 01-01-2012 End: 01-01-2012 Samira FOSTER MD Work Phone: [place] [employer] [facility] [employer]. Start: 12-27-2011 End: 12-27-2011 Samira FOSTER MD Work Phone: [place] [employer] [facility] Start: 10-30-2011 End: 10-30-2011 Samira FOSTER MD Work Phone: [place] [employer] [facility] [employer]. Start: 08-13-2011 End: 08-13-2011 Samira FOSTER MD Work Phone: [place] [employer] [facility] [employer]. Start: 08-11-2011 End: 08-11-2011 Samira FOSTER MD Work Phone: [place] [employer] [facility] [employer]. Start: 07-03-2011 End: 07-03-2011 Samira FOSTER MD Work Phone: [place] [employer] [facility] [employer]. Start: 07-02-2011 End: 07-02-2011 Samira FOSTER MD Work Phone: [place] [employer] [facility] [employer]. Start: 05-21-2011 End: 05-22-2011 Samira FOSTER MD Work Phone: [place] [employer] [facility] [employer]. Start: 04-26-2011 End: 04-26-2011 Samira FOSTER MD Work Phone: [facility] [employer] [facility] Start: 04-24-2011 End: 04-24-2011 Samira FOSTER MD Work Phone: [facility] [employer] Start: 03-19-2011 End: 03-19-2011 Samira FOSTER MD Work Phone: [facility] [employer] [facility] Start: 03-12-2011 End: 03-12-2011 Samira FOSTER MD Work Phone: [facility] [employer] [facility], [employer]. Start: 02-12-2011 End: 02-12-2011 Samira FOSTER MD Work Phone: [facility] [employer] [employer] Start: 12-21-2010 End: 12-21-2010 Samira FOSTER MD Work Phone: [facility] [employer] [facility] Start: 12-14-2010 End: 12-14-2010 Samira FOSTER MD Work Phone: [facility] [employer] [facility] Start: 12-12-2010 End: 12-12-2010 Samira FOSTER MD Work Phone: [facility] [employer] [facility] Start: 11-28-2010 End: 11-28-2010 Samira FOSTER MD Work Phone: [facility] [employer] [facility] Start: 10-23-2010 End: 10-23-2010 Samira FOSTER MD Work Phone: [facility] [employer] [facility] Start: 09-10-2010 End: 09-10-2010 Samira FOSTER MD Work Phone: [facility] [employer], [employer]. Start: 08-22-2010 End: 08-22-2010 Samira FOSTER MD Work Phone: [facility] [employer], [employer]. Start: 08-19-2010 End: 08-19-2010 Sam[facility]OST[facility] MD [facility] Start: 08-19-2010 End: 08-19-2010 [facility] MD [facility] Start: 07-20-2010 End: 07-20-2010 Samira FOSTER MD Work Phone: [facility] Procedures Date Procedure Procedure Detail Performing Clinician Start: 06-15-2022 End: 06-15-2022 Samira FOSTER MD Work Phone: Start: 09-22-2021 End: 09-22-2021 Dischrg meds reconciled w/current med list Donta MCKINNON MD Work Phone: Start: 10-25-2020 End: 10-25-2020 Dischrg meds reconciled w/current med list Samira FOSTER MD Work Phone: Start: 10-25-2020 End: 10-25-2020 Samira FOSTER MD Work Phone: Start: 08-01-2020 End: 08-01-2020 Samira FOSTER MD Work Phone: Start: 01-10-2019 End: 01-10-2019 Arthrocentesis aspir&/inj major jt/bursa w/o us Donta MCKINNON MD Work Phone: Start: 12-01-2018 End: 12-01-2018 Dischrg meds reconciled w/current med list Donta MCKINNON MD Work Phone: Start: 11-22-2018 End: 11-22-2018 Dischrg meds reconciled w/current med list Donta MCKINNON MD Work Phone: Start: 07-25-2017 End: 07-25-2017 Screening colonoscopy Samira FOSTER MD Work Phone: Start: 05-28-2015 End: 05-28-2015 Chemical cauterization of granulation tissue Donta MCKINNON MD Work Phone: Start: 08-13-2011 End: 08-13-2011 Samira FOSTER MD Work Phone: Start: 07-21-2001 End: 07-21-2001 Samira FOSTER MD Work Phone: Plan of Treatment Date Care Activity Detail Author Start: 11-17-2023 [facility] Start: 10-27-2022 Assay of ferritin [facility] [employer] [facility].; [facility] Start: 10-27-2022 [facility] iron [facility].; [facility] Start: 10-27-2022 Blood occult peroxid ase actv qual feces 1 deter [facility] [employer] [facility].; [facility] Start: 06-01-2022 [facility], [employer].; [facility] [employer] [facility] Start: 10-25-2020 Removal skn tags parachute mender fibrq tags any area upw15 [facility], [employer].; [facility] [employer] [facility] Start: 07-28-2020 Sars-cov-2 detection by dna/rna [facility] [employer] [facility].; [facility] [employer] [facility] Start: 12-01-2018 Radiologic examinati on pelvis 1/2 views [facility] [employer] [facility].; [facility] [employer] [facility] Start: 11-22-2018 Radiologic examinati on pelvis 1/2 views [facility] [employer] [employer].; [facility] [employer] [employer] Start: 04-02-2017 End: 04-02-2017 Removal skn tags parachute mender fibrq tags any area upw/15 [facility] [employer] [facility].; [facility] [employer] [employer] Start: 07-28-2015 Assay of testosterone total [facility].; [facility] [employer] [facility] Start: 07-03-2014 Comprehensive metabolic panel [facility].; [facility], [facility]. Start: 07-03-2014 Assay of thyroid sti mulating hormone tsh [facility].; [facility], [facility] Start: 07-03-2014 Assay of triiodothyronine t3 free [facility].; [facility], [facility] Start: 07-03-2014 Assay of free thyroxine [facility].; [facility], [facility] Start: 07-03-2014 25 hydroxy includes fractions if performed [facility].; [facility], [facility]. Start: 02-11-2014 Assay of testosterone free [facility].; [facility], [facility]. Start: 02-11-2014 Assay of testosterone total [facility].; [facility], [facility]. Start: 12-15-2013 Assay of testosterone free [facility].; [facility], [facility]. Start: 11-16-2013 Assay of testosterone total [facility].; [facility], [facility] Start: 04-24-2011 Assay of free thyroxine [facility].; [facility], [facility]. Immunizations Immunization Date Immunization Notes Care Provider [facility] 08-12-2022 influenza virus vaccine, unspecified formulation Samira FOSTER MD Work Phone: [facility].; [facility], [facility]. 08-12-2022 unknown vaccine or immune globulin Samira FOSTER MD Work Phone: [facility].; [facility]. 08-12-2022 influenza, injectabl e, quadrivalent, preservative free Samira FOSTER MD Work Phone: [facility]; [facility]. 08-04-2021 influenza, seasonal, injectable Samira FOSTER MD Work Phone: [facility].; [facility] 09-30-2015 unknown vaccine or immune globulin Samira FOSTER MD Work Phone: [facility]; [facility] 09-30-2015 influenza, injectabl e, quadrivalent, contains preservative Samira FOSTER MD Work Phone: [facility]; [facility] 08-15-2013 influenza, seasonal, injectable Samira FOSTER MD Work Phone: [facility]; [facility] 08-15-2013 Samira FOSTER MD Work Phone: [facility]; [facility] 08-13-2011 tetanus toxoid, redu keely diphtheria toxoid, and acellular pertussis vaccine, adsorbed Samira FOSTER MD Work Phone: [facility]; [facility] 12-14-2010 Samira FOSTER MD Work Phone: [facility]; [facility] 07-21-2001 tetanus and diphther ia toxoids, adsorbed, preservative free, for adult use (2 Lf of tetanus toxoid and 2 Lf of diphtheria toxoid) Samira FOSTER MD Work Phone: [facility].; [facility] Payers Date Payer Category Payer Unknown [id number] 1965 Unknown [id number] [id number] 1965 Unknown [id number] [id number] [id number] 1965 Unknown [id number] 1965 Unknown [id number] [id number] 1965 Unknown [id number] [id number] [id number] Unknown [id number] Unknown Social History Date Type Detail Facility 1 to 7 drinks per week. [facility] [employer].; [facility] [employer] [facility]. Full-time. [facility] [employer] [facility] [employer].; [facility] [facility]. Less than high school. [employer] [facility] [facility]. . [employer] [facility] [facility] Ill[facility] [employer]. Former smoker. [facility].; [facility] [employer] [facility] Ill[facility]. Summary Purpose Family History Brother (s) Status:Active Comments:In good health. 3 oldest bro with multiple myeloma Father Status:Active Comments:In stab le health. Mother Status:Active Comments: d. age 76 breast cancer Sister (s) Status:Active Comments:In good health. 5 Brother (s) Status:Active Comments:In good health. 3 oldest bro with multiple myeloma Father Status:Active Comments:In stab le health. Mother Status:Active Comments: d. age 76 breast cancer Sister (s) Status:Active Comments:In good health. 5 Advance Directives No Advanced Directives Records FoundNo Advanced Directives Records FoundNo Advanced Directives Records FoundNo Advanced Directives Records Found Additional Source Comments (unrecognized sect ion and content) No Status Records FoundNo Status Records FoundNo Status Records FoundNo Status Records Found INFORMATION SOURCE (unrecogn ized section and content) DATE CREATED AUTHOR AUTHOR'S ORGANIZ ATION 07/31/[address] [facility] DATE CREATED AUTHOR AUTHOR'S ORGANIZ ATION 02/16/2023 [facility] ([place]) DATE CREATED AUTHOR AUTHOR'S ORGANIZ ATION 10/06/2023 [facility] FOR RECORDS PERTAINING TO PATIENTS WHO ARE OR HAVE BEEN ENROLLED IN A CHEMICAL DEPENDENCY/SUBSTANCEABUSE PROGRAM, SOME INFORMATION MAY BE OMITTED. This clinical summary was aggregated from multiple sources. Caution should be exercised in using it in the provision of clinical care. This summary normalizes information from multiple sources, and as a consequence, information in this document may materially change the coding, format and clinical context of patient data. In addition, data may be omitted in some cases. CLINICAL DECISIONS SHOULD BE BASED ON THE PRIMARY CLINICAL RECORDS. [facility] [employer] [facility]. provides no warranty or guarantee of the accuracy or completeness of information in this document.
== END 2023-11-15 14:45 | disposition home or self-care (01) ==
LOC: EN 12:22 → AC 12:24
PROVIDERS: PCP Family Medicine; Referring Provider Family Medicine; Visit Provider Internal Medicine Gastroenterology
PROC: 0DJ08ZZ Inspection of Upper Intestinal Tract, Via Natural or Artificial Opening Endoscopic (ICD-10-PCS; CPT 43235; principal; 2023-11-15 13:10)
DX: D50.8 Other iron deficiency anemias (principal); K59.1 Functional diarrhea; K31.9 Disease of stomach and duodenum, unspecified; K22.70 Barrett's esophagus without dysplasia; K20.90 Esophagitis, unspecified without bleeding
CPT/HCPCS: 43255; 43239; 88305; 88313; 88341; 88342; J7120; J2405

== ENCOUNTER 2025-04-09 12:49 | Day surgery (SDC) | payer OTHER, SELFPAY ==
[2025-04-09] VITALS (8 sets, daily range): BP systolic 109–113; BP diastolic 71–77; PULSE 50–65; RESP 12–18; TEMP 36.4–36.8; O2SAT 95–97; BMI 28.6
[2025-04-09] MEDS: Lactated Ringers 1,000 ML 15 ML IV (13:17)
== END 2025-04-09 15:18 | disposition home or self-care (01) ==
LOC: EN 12:51 → AC 13:06
PROVIDERS: PCP Family Medicine; Referring Provider Family Medicine; Visit Provider Internal Medicine Gastroenterology
PROC: 0DJ08ZZ Inspection of Upper Intestinal Tract, Via Natural or Artificial Opening Endoscopic (ICD-10-PCS; CPT 43235; principal; 2025-04-09 13:55)
DX: K22.70 Barrett's esophagus without dysplasia (principal); K44.9 Diaphragmatic hernia without obstruction or gangrene; D50.9 Iron deficiency anemia, unspecified; K31.7 Polyp of stomach and duodenum; K21.9 Gastro-esophageal reflux disease without esophagitis; Z79.899 Other long term (current) drug therapy
CPT/HCPCS: 43239; 88305; J2405